=== PATIENT | male | born 1995 | race American Indian/Alaskan Native ===

== ENCOUNTER 2020-01-09 11:57 | Emergency (ER) | payer SELFPAY ==
[2020-01-09 12:19] VITALS: BP 136/91
--- NOTE | 2020-01-09 12:26 | Emergency Department Report ---
Chief Complaint: Extremity Injury, Upper Stated Complaint: LEFT ARM PAIN Time Seen by Provider: 01/09/20 12:18 - HPI History of Present Illness: 24-year-old male presents to the emergency room complaining of left forearm pain since Friday. Patient states he has been lifting heavy objects. Patient is taken nothing for pain. Patient states he did not know what to take. - Exam Vital Signs: Vital Signs 01/09/20 12:13 Temperature 99 F Pulse Rate 57 L Respiratory 16 Rate Blood Pressure 136/91 O2 Sat by Pulse 100 Oximetry Physical Exam: Gen: alert oriented NAD Upper extremity left full range of motion no tenderness no swelling nonerythematous Patient is ambulatory without difficulties MSE screening note: Focused history and physical exam performed. Due to findings the following was ordered: 24-year-old male presents to the emergency room complaining of left forearm pain since Friday. Patient states he has been lifting heavy objects. Patient is taken nothing for pain. Patient states he did not know what to take. Recommend patient to take [id number] Tylenol or ibuprofen for pain management. ED Disposition for MSE Is pt being admited?: No Does the pt Need Aspirin: No Condition: Stable Additional Instructions: Recommend patient to take [id number] Tylenol or ibuprofen for pain management. Referrals: FLIP SARABIA MD [Staff Physician] - 3-5 Days
== END 2020-01-09 13:29 | disposition left against medical advice (07) ==
LOC: ED 11:57
DX: M79.605 Pain in left leg (principal); Z53.21 Procedure and treatment not carried out due to patient leaving prior to being seen by health care provider